=== PATIENT | female | born 1990 | race Caucasian/White ===

== ENCOUNTER 2016-08-24 12:46 | Observation (INO) | payer OTHER ==
[2016-08-24] MEDS ORDERED: PROMETHAZINE HCL 25 MG TABLET PO ONE (14:24)
[2016-08-24] MEDS ORDERED: OXYCODONE-ACETAMINOPHEN 5-325 MG TABLET PO ONE (14:24)
--- NOTE | 2016-08-24 14:26 | ER Document Report ---
ED Medical Screen (RME) - General Chief Complaint: Abdominal Pain Stated Complaint: ABDOMINAL PAIN Notes: Patient noted onset of pain in the right lower quadrant of her abdomen and around into the right back/flank region starting about 4 AM this morning. Around 11:00 today, she noted that she had a fever. Has not had any nausea or vomiting or diarrhea. No UTI symptoms, but has had UTIs in the past. Patient is the mother of a 9-month-old , not nursing. LMP 3/13 and irregular, on no control. Patient has a history of lupus and fibromyalgia. She is currently on Plaquenil , Imuran, Cymbalta, meloxicam, and tramadol. TRAVEL OUTSIDE OF THE [place] IN LAST 30 DAYS: No - Related Data Allergies/Adverse Reactions: pineapple Allergy (Mild, Verified 08/24/16 12:52) Past Medical History Neurological Medical History: Reports: Hx Seizures - "a few weeks ago". Denies : Hx Cerebrovascular Accident Renal/ Medical History: Denies: Hx Kidney Stones, Hx Peritoneal Dialysis Psychiatric Medical History: Reports: Hx Bipolar Disorder, Hx Depression Denies: Hx Post Traumatic Stress Disorder, Hx Schizophrenia Infectious Medical History: Denies: Hx HIV Past Surgical History: Reports: Hx Section Physical Exam - Vital signs Vitals: Temp Pulse Resp BP Pulse Ox 99.6 F 125 H 16 125/76 99 08/24/16 12:52 08/24/16 12:52 08/24/16 12:52 08/24/16 12:52 08/24/16 12:52 Course - Vital Signs Vital signs: Temp Pulse Resp BP Pulse Ox 99.6 F 125 H 16 125/76 99 08/24/16 12:52 08/24/16 12:52 08/24/16 12:52 08/24/16 12:52 08/24/16 12:52
[2016-08-24 14:56] LABS: HEMATOCRIT 35.7 % (36.0-47.0); HGB HCT DIFFERENCE 0.3; MEAN CORPUSCULAR HEMOGLOBIN 28.6 pg (27.0-33.4); MEAN CORPUSCULAR HGB CONC 33.6 g/dL (32.0-36.0); MEAN CORPUSCULAR VOLUME 85 fl (80-97); RED BLOOD COUNT 4.19 10^6/uL (3.72-5.28); RED CELL DISTRIBUTION WIDTH 17.2 % (11.5-14.0); WHITE BLOOD COUNT 17.8 10^3/uL (4.0-10.5)
[2016-08-24] MEDS ORDERED: NORMAL SALINE 500 ML IV ONE (15:11)
--- NOTE | 2016-08-24 15:11 | ER Document Report ---
ED GI/ - General Mode of Arrival: Ambulatory Information source: Patient TRAVEL OUTSIDE OF THE [place] IN LAST 30 DAYS: No - HPI Patient complains to provider of: Abdominal pain - RLQ pain that radiates to bilateral flanks, Flank pain - bilateral Onset: This morning - 0400 Location: RLQ, Left flank, Right flank Associated symptoms: Other - see notes above Exacerbated by: Movement <AMARIS DUNN - Last Filed: 08/24/16 19:17> <CASSY LAZARO - Last Filed: 08/24/16 22:39> - General Chief Complaint: Abdominal Pain Stated Complaint: ABDOMINAL PAIN Notes: 26 year old female with history of ovarian cysts, Lupus, and fibromyalgia presents to the ED complaining of sudden RLQ abdominal pain that radiates to the bilateral flanks which started this morning at 0400. Patient states that this pain feels different than her pain with ovarian cysts. Patient additionally complains of nausea after eating and a fever (101.2F; has taken Tylenol), and denies burning with urination, dysuria, or frequency. Patient states that her pain is exacerbated with movement. (AMARIS DUNN) - Related Data Allergies/Adverse Reactions: pineapple Allergy (Mild, Verified 08/24/16 12:52) Past Medical History - General Information source: Patient - Social History Smoking Status: Unknown if Ever Smoked Family History: Reviewed & Not Pertinent Patient has suicidal ideation: No Patient has homicidal ideation: No Neurological Medical History: Reports: Hx Seizures - "a few weeks ago". Denies : Hx Cerebrovascular Accident Renal/ Medical History: Reports: Hx Ovarian Cysts. Denies: Hx Kidney Stones, Hx Peritoneal Dialysis Musculoskeltal Medical History: Reports Hx Fibromyalgia Psychiatric Medical History: Reports: Hx Bipolar Disorder, Hx Depression Denies: Hx Post Traumatic Stress Disorder, Hx Schizophrenia Infectious Medical History: Denies: Hx HIV Past Surgical History: Reports: Hx Section - x2, Hx Tonsillectomy <AMARIS DUNN - Last Filed: 08/24/16 19:17> <CASSY LAZARO - Last Filed: 08/24/16 22:39> - Medical History Notes: History of Lupus (AMARIS DUNN) Review of Systems - Review of Systems Constitutional: See HPI, Fever - 101.2F EENT: No symptoms reported Cardiovascular: No symptoms reported Respiratory: No symptoms reported Gastrointestinal: See HPI, Abdominal pain - RLQ, Nausea - after eating Genitourinary: See HPI, Flank pain - bilateral. denies: Burning, Dysuria, Frequency Female Genitourinary: No symptoms reported Musculoskeletal: No symptoms reported Skin: No symptoms reported Hematologic/Lymphatic: No symptoms reported Neurological/Psychological: No symptoms reported -: Yes All other systems reviewed and negative <AMARIS DUNN - Last Filed: 08/24/16 19:17> Physical Exam - General General appearance: Alert In distress: None - HEENT Head: Normocephalic, Atraumatic Eyes: Normal Extraocular movements intact: Yes Pupils: PERRL - Respiratory Respiratory status: No respiratory distress Breath sounds: Normal - Cardiovascular Rhythm: Regular Heart sounds: Normal auscultation - Abdominal Inspection: Normal Distension: No distension Tenderness: Tender - RLQ tenderness to palpation - Back Back: CVA tenderness - right. No: Normal - Extremities General upper extremity: Normal inspection, Normal ROM General lower extremity: Normal inspection, Normal ROM - Neurological Neuro grossly intact: Yes Cognition: Normal Orientation: AAOx4 Oden Coma Scale Eye Opening: Spontaneous Harjit Coma Scale Verbal: Oriented Harjit Coma Scale Motor: Obeys Commands Oden Coma Scale Total: 15 Speech: Normal - Psychological Associated symptoms: Normal affect, Normal mood - Skin Skin Temperature: Warm Skin Moisture: Dry Skin Color: Normal <AMARIS DUNN - Last Filed: 08/24/16 19:17> <CASSY LAZARO - Last Filed: 08/24/16 22:39> - Vital signs Vitals: Temp Pulse Resp BP Pulse Ox 99.6 F 125 H 16 125/76 99 08/24/16 12:52 08/24/16 12:52 08/24/16 12:52 08/24/16 12:52 08/24/16 12:52 - Genitourinary Notes: Patient does not want to have pelvic exam at this time. Have explained concern for infection. Patient states that she does not have an STD and she does not tolerate pelvic exams as they can be painful for her. (CASSY LAZARO) Course - Laboratory Result Diagrams: 08/24/16 14:38 08/24/16 14:38 - Consults Dr. Steinberg Time consulted: 18:29 <AMARIS DUNN - Last Filed: 08/24/16 19:17> - Laboratory Result Diagrams: 08/24/16 14:38 08/24/16 14:38 <CASSY LAZARO - Last Filed: 08/24/16 22:39> - Re-evaluation Re-evalutation: 08/24/16 Patient is a 26-year-old female who comes in with right lower quadrant pain, nausea, and fever at home. Patient has continued to right lower quadrant pain in the emergency department. No acute findings on right upper quadrant ultrasound. Symptoms concerning for appendicitis. Surgery has been consulted to evaluate the patient. Patient has refused pelvic exam. Transvaginal ultrasound within normal limits. No acute findings on urine. Patient does have leukocytosis with a left shift. Patient discussed with Dr. Steinberg and will be admitted for observation. Patient agrees with this plan. (CASSY LAZARO) - Vital Signs Vital signs: Temp Pulse Resp BP Pulse Ox 98.5 F 69 18 114/72 100 08/24/16 19:56 08/24/16 19:56 08/24/16 18:40 08/24/16 19:56 08/24/16 19:56 - Laboratory Laboratory results interpreted by me: 08/24/16 08/24/16 14:38 14:38 WBC 17.8 H Hct 35.7 L RDW 17.2 H Seg Neuts % (Manual) 95 H Lymphocytes % (Manual) 4 L Monocytes % (Manual) 0 L Abs Neuts (Manual) 16.9 H Abs Monocytes (Manual) 0.0 L Albumin 5.1 H - Consults Dr. Steinberg Reason for consultation: 08/24/16 18:29 Patient was discussed with Dr. Steinberg and agrees to see the patient at bedside. 08/24/16 19:15 Dr. Steinberg called and requests that a CT-Pelvis with contrast be done. (AMARIS DUNN) Discharge <AMARIS DUNN - Last Filed: 08/24/16 19:17> - Discharge Admitting Provider: Surgicalist - [facility] Admitted: Surgical Floor <CASSY LAZARO - Last Filed: 08/24/16 22:39> - Discharge Clinical Impression: Abdominal pain Qualifiers: Abdominal location: right lower quadrant Qualified Code(s): R10.31 - Right lower quadrant pain Fever Qualifiers: Fever type: unspecified Qualified Code(s): R50.9 - Fever, unspecified Condition: Stable Disposition: ADMITTED OBSERVATION Scribe Attestation: 08/24/16 22:39 I personally performed the services described in the documentation, reviewed and edited the documentation which was dictated to the scribe in my presence, and it accurately records my words and actions. (CASSY LAZARO) Scribe Documentation - Scribe Written by Scribe:: Barry Rooney, 08/24/2016 1531 acting as scribe for :: Saira <AMARIS DUNN - Last Filed: 08/24/16 19:17>
[2016-08-24 15:16] LABS: ALANINE AMINOTRANSFERASE 43 U/L (9-52); ALBUMIN 5.1 g/dL (3.5-5.0); ALKALINE PHOSPHATASE 60 U/L (38-126); ANION GAP 13 (5-19); ASPARTATE AMINO TRANSFERASE 28 U/L (14-36); BILIRUBIN,DIRECT 0.2 mg/dL (0.0-0.4); BILIRUBIN,TOTAL 0.9 mg/dL (0.2-1.3); BLOOD UREA NITROGEN 8 mg/dL (7-20); CALCIUM 9.8 mg/dL (8.4-10.2); CARBON DIOXIDE 25 mmol/L (22-30); CHLORIDE 103 mmol/L (98-107); CREATININE RESULT 0.57 mg/dL (0.52-1.25); GLUCOSE 109 mg/dL (75-110); LIPASE 140.3 U/L (23-300); POTASSIUM 3.8 mmol/L (3.6-5.0); SODIUM 140.9 mmol/L (137-145); TOTAL PROTEIN 7.8 g/dL (6.3-8.2)
[2016-08-24 15:17] LABS: BASOPHILS % (MANUAL) 1 % (0-2); EOSINOPHILS % (MANUAL) 0 % (0-6); LYMPHOCYTES % (MANUAL) 4 % (13-45); TOTAL CELLS COUNTED 100
[2016-08-24 15:19] LABS: ANISOCYTOSIS 2+; OVALOCYTES 2+; POIKILOCYTOSIS 2+; POLYCHROMASIA SLIGHT; SCHISTOCYTES SLIGHT
[2016-08-24 15:20] LABS: HYPOCHROMASIA SLIGHT
[2016-08-24 15:21] LABS: APPEARANCE,URINE CLEAR; BILIRUBIN,URINE NEGATIVE (NEGATIVE); GLUCOSE, URINE NEGATIVE (NEGATIVE); KETONES,URINE NEGATIVE (NEGATIVE); LEUKOCYTE ESTERASE,URINE NEGATIVE (NEGATIVE); NITRITE,URINE NEGATIVE (NEGATIVE); PROTEIN,URINE NEGATIVE (NEGATIVE); URINE SPECIFIC GRAVITY 1.004; UROBILINOGEN,URINE NEGATIVE mg/dL (<2.0)
[2016-08-24] MEDS ORDERED: NORMAL SALINE 1000 ML 1,000 ML IV ONE (18:34)
[2016-08-24] MEDS ORDERED: ONDANSETRON HCL INJ/PF 4 MG/2 ML SDV IV ONE (18:35)
[2016-08-24] MEDS ORDERED: MORPHINE SULFATE 10 MG/ML INJ IV ONE (18:35)
--- NOTE | 2016-08-24 19:31 | PDOC H&P ---
History of Present Illness Patient complains of: Abdominal pain History of Present Illness: ARTURO ABDULLAHI is a 26 year old female who was in her usual state of health, so early this morning when she developed acute onset abdominal pain. She had a bowl of cereal. There is been no nausea or vomiting. Because of persisting right lower quadrant and right sided pain in the emergency department where she was found to have right-sided abdominal tenderness. She was complaining of pain and was given by mouth pain medication in the triage area. She was also tachycardic to 120. Patient had a right upper quadrant ultrasound was unremarkable. She then had a CT scan without oral contrast which showed some fluid in the pelvis otherwise nondiagnostic. Patient received intravenous morphine for more pain and surgery was consulted. She denies being sick, denies history of trauma, denies anorexia, denies constitutional symptoms. Past Medical History Neurological Medical History: Reports: Seizures - "a few weeks ago" Musculoskeltal Medical History: Reports: Fibromyalgia Psychiatric Medical History: Reports: Bipolar Disorder, Depression Denies: Post Traumatic Stress Disorder Hematology: Reports: Anemia - during Denies: Hemophilia, Sickle Cell Disease Infectious Medical History: Denies: HIV Past Surgical History Past Surgical History: Reports: Section - x2, Tonsillectomy Social History Smoking Status: Unknown if Ever Smoked Family History Family History: Reviewed & Not Pertinent Parental Family History Reviewed: Yes Children Family History Reviewed: Yes Sibling(s) Family History Reviewed.: Yes Medication/Allergy Home Medications: Hydroxychloroquine Sulfate [Plaquenil 200 mg Tablet] 200 mg PO BID 06/01/15 Vit #76/Iron,Carb/FA [Pnv 29-1 Tablet] 1 tab PO DAILY 10/29/15 Ibuprofen [Motrin 800 mg Tablet] 800 mg PO Q8HP PRN #60 tablet 11/18/15 Oxycodone HCl/Acetaminophen [Percocet 5-325 mg Tablet] 1 tab PO Q4HP PRN #30 tablet 11/18/15 Allergies/Adverse Reactions: pineapple Allergy (Mild, Verified 08/24/16 12:52) Review of Systems Constitutional: PRESENT: as per HPI Eyes: ABSENT: visual disturbances Ears: ABSENT: hearing changes Cardiovascular: ABSENT: chest pain, dyspnea on exertion, edema, orthropnea, palpitations Respiratory: ABSENT: cough, hemoptysis Gastrointestinal: PRESENT: as per HPI, other - Patient denies change in bowel habits. Genitourinary: ABSENT: dysuria, hematuria Musculoskeletal: ABSENT: joint swelling Integumentary: ABSENT: rash, wounds Physical Exam Vital Signs: Temp Pulse Resp BP Pulse Ox 98.1 F 88 18 114/63 99 08/24/16 18:40 08/24/16 18:40 08/24/16 18:40 08/24/16 18:40 08/24/16 18:40 Intake & Output 08/23/16 08/24/16 08/25/16 06:59 06:59 06:59 Weight 46.1 kg General appearance: PRESENT: no acute distress Head exam: PRESENT: normocephalic Eye exam: PRESENT: EOMI Ear exam: PRESENT: normal external ear exam Mouth exam: PRESENT: dry mucosa Neck exam: PRESENT: full ROM Respiratory exam: PRESENT: clear to auscultation luci Cardiovascular exam: PRESENT: RRR Pulses: PRESENT: +1 pedal pulses bilateral, +2 pedal pulses bilateral Vascular exam: PRESENT: normal capillary refill GI/Abdominal exam: PRESENT: other - Soft, essentially no tenderness, no rigidity no peritoneal signs no mass. Gentrourinary exam: PRESENT: other - Deferred Extremities exam: PRESENT: full ROM Musculoskeletal exam: PRESENT: other - No focal deformities Neurological exam: PRESENT: other - No focal deformities Skin exam: PRESENT: dry Results Laboratory Results: 08/24/16 14:38 08/24/16 14:38 08/24/16 08/24/16 08/24/16 14:38 14:38 14:38 WBC 17.8 H RBC 4.19 Hgb 12.0 Hct 35.7 L MCV 85 MCH 28.6 MCHC 33.6 RDW 17.2 H Plt Count 247 Seg Neutrophils % Not Reportable Lymphocytes % Not Reportable Monocytes % Not Reportable Eosinophils % Not Reportable Basophils % Not Reportable Absolute Neutrophils Not Reportable Absolute Lymphocytes Not Reportable Absolute Monocytes Not Reportable Absolute Eosinophils Not Reportable Absolute Basophils Not Reportable Sodium 140.9 Potassium 3.8 Chloride 103 Carbon Dioxide 25 Anion Gap 13 BUN 8 Creatinine 0.57 Est GFR ( Amer) > 60 Est GFR (Non-Af Amer) > 60 Glucose 109 Calcium 9.8 Total Bilirubin 0.9 AST 28 ALT 43 Alkaline Phosphatase 60 Total Protein 7.8 Albumin 5.1 H Lipase 140.3 Serum HCG, Qual NEGATIVE Urine Color Urine Appearance Urine pH Ur Specific [place] Urine Protein Urine Glucose (UA) Urine Ketones Urine Blood Urine Nitrite Ur Leukocyte Esterase Urine WBC (Auto) Urine RBC (Auto) 08/24/16 14:38 WBC RBC Hgb Hct MCV MCH MCHC RDW Plt Count Seg Neutrophils % Lymphocytes % Monocytes % Eosinophils % Basophils % Absolute Neutrophils Absolute Lymphocytes Absolute Monocytes Absolute Eosinophils Absolute Basophils Sodium Potassium Chloride Carbon Dioxide Anion Gap BUN Creatinine Est GFR ( Amer) Est GFR (Non-Af Amer) Glucose Calcium Total Bilirubin AST ALT Alkaline Phosphatase Total Protein Albumin Lipase Serum HCG, Qual Urine Color STRAW Urine Appearance CLEAR Urine pH 7.0 Ur Specific [place] 1.004 Urine Protein NEGATIVE Urine Glucose (UA) NEGATIVE Urine Ketones NEGATIVE Urine Blood NEGATIVE Urine Nitrite NEGATIVE Ur Leukocyte Esterase NEGATIVE Urine WBC (Auto) 1 Urine RBC (Auto) 0 Impressions: Abdomen Ultrasound 08/24/16 15:47 IMPRESSION: NORMAL RIGHT UPPER QUADRANT ULTRASOUND. Abdomen/Pelvis CT 08/24/16 17:16 IMPRESSION: APPENDIX NOT CONFIDENTLY IDENTIFIED HOWEVER NO DISCRETE INFLAMMATORY CHANGES SEEN WITHIN THE RIGHT LOWER QUADRANT. THERE IS A SMALL AMOUNT OF FREE FLUID IN THE RIGHT HEMIPELVIS IN THE SETTING OF DOMINANT RIGHT OVARIAN FOLLICLE PRESUMABLY PHYSIOLOGIC BUT COULD ACCOUNT FOR RIGHT LOWER QUADRANT/ PELVIC PAIN. CORRELATE WITH PHYSICAL EXAM. MILD TO MODERATE HEPATIC STEATOSIS. CORRELATE WITH LIVER ENZYMES. Status: Image reviewed by me - CT scan extremely limited due to low body fat, and absence of oral contrast. There is some stool in the colon Assessment & Plan - Diagnosis (1) Abdominal pain Qualifiers: Abdominal location: right lower quadrant Qualified Code(s): R10.31 - Right lower quadrant pain Is this a current diagnosis for this admission?: YesPlan: 1. Currently the patient does not last the classic performance of acute appendicitis; addition she received oral and IV pain medication and she is on chronic immunosuppression. Her abdominal Examination at this moment is almost benign. 2. I would suggest holding all pain medicine, repeating her CT scan with oral contrast to better delineate her pelvic anatomy. She is also receiving a transvaginal ultrasound. 3. We will admit the patient to the surgical service for observation, keep her nothing by mouth, and consult hospitalist to assist with pharmacologic management. (2) SLE (systemic lupus erythematosus) Is this a current diagnosis for this admission?: YesPlan: Medical management per consulting service (4) Fibromyalgia Is this a current diagnosis for this admission?: YesPlan: We will manage her after consulting medical service (7) Immunosuppression Is this a current diagnosis for this admission?: YesPlan: We'll consult internal medicine to assist with medical management - Time Time Spent: 50 to 70 Minutes Critical Time spent with patient: 15-24 minutes Medications reviewed and adjusted accordingly: Yes Anticipated discharge: Home - Inpatient Certification Medical Necessity: Need For IV Fluids
[2016-08-24] MEDS: RINGERS SOLUTION,LACTATED 1,000 ML IV PRN (23:16)
[2016-08-24 23:41] LABS: ADD ON TESTING BLD IN LAB ACKNOWLEDGE
[2016-08-24] MEDS ORDERED: NICOTINE 7 MG/24 HR PATCH.TD24 TD PRN (23:51)
--- NOTE | 2016-08-24 23:56 | PDOC CONSULTATION ---
Consultation Consult Date: 08/24/16 Attending physician:: GARIMA HU Consult reason:: management of medical problems History of Present Illness Admission Date/PCP: 08/24/16 21:40 PCP None [facility] [place] Patient complains of: RLQ pain History of Present Illness: ARTURO ABDULLAHI is a 26 year old female who was in her usual state of health, until early this morning when she developed acute onset abdominal pain. She had a bowl of cereal. There has been no nausea or vomiting. Because of persistent right lower quadrant and right sided abdominal pain, she presented to the emergency department where she was found to have right-sided abdominal tenderness. She was complaining of pain and was given by mouth pain medication in the triage area. She was also tachycardic to 120. Patient had a right upper quadrant ultrasound was unremarkable. She then had a CT scan without oral contrast which showed some fluid in the pelvis otherwise nondiagnostic. Patient received intravenous morphine for more pain and surgery was consulted. She denies being sick, denies history of trauma, denies anorexia, denies constitutional symptoms. Patient has been discussed with consulting surgeon who evaluated the patient. History and physical, along with emergency room physician notes have been reviewed. She is currently resting quietly, still having mild right lower quadrant abdominal pain.. Laboratory results are listed in [facility] and are reviewed. X-ray summary results are listed below, with full report(s) reviewed. . Social history/personal habits: . 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 Occasional alcohol. No illicit drug use. Allergies/adverse reactions are listed in [facility] and are reviewed. NKDA. Home medications Home medications initially autopopulated into [facility] may not accurately reflect patient's true medications, dosages, and/or frequencies. genetic technologist to reconcile medications. Unfortunately, patient uncertain of all her medications/dosages/frequencies. REVIEW OF SYSTEMS: Constitutional: See history and present illness. Eyes: Wears glasses. ENT: No swallowing problems or complaints. No hearing problems or complaints. Pulmonary: No current complaints. Cardiovascular: No current complaints, including chest pain. Gastrointestinal: See history and present illness. Skin: No current complaints, including rashes. Hematologic: Easy bruising. Neurologic: No current complaints, including numbness or tingling. Musculoskeletal: Pain from fibromyalgia. Psychiatric: Mild Anxiety depression; denies suicidal or homicidal ideation. Endocrine: No current complaints, including polyuria. Genitourinary: No current complaints, including dysuria. PHYSICAL EXAMINATION: 5 feet tall. 46.1 kg. BMI 19.8 kg/m.Temperature 98.5. Pulse 69 and regular. Blood pressure 114/72. 100% saturation on room air. Respirations are 14 and unlabored. Female emergency room nurse Nathen is present. , along with male dial lathe operator, are present. Patient approves. Thin, otherwise well-developed young female appearing approximately her stated age. Initially asleep, awakens easily. Pleasant alert and cooperative. No obvious distress other than perhaps mildly anxious. Skin is warm and dry. No grossly obvious evidence of rash in areas of skin examined. No subcutaneous nodules palpated. Tattoos. ENT: Hearing grossly normal to normal conversation. Tongue midline on protrusion pink and slightly tacky. Eyes: No scleral icterus. Pupils equal and reactive to light at 4 mm. Bowdens conjunctivae. Neck is supple and nontender to gentle active range of motion and palpation. Midline trachea. No palpable thyroid nodule mass enlargement or tenderness. Lymphatic: No palpable cervical or clavicular nodes. Neck and lymphatic exams limited by patient body habitus. Psychiatric: Reasonable insight into acute and chronic medical issues. Oriented to time location and why here. Lungs: Auscultation reveals clear and equal breath sounds bilaterally. No use of accessory respiratory muscles. Cardiovascular: Heart regular rate and rhythm, without gallop murmur or rub. No carotid or abdominal aortic bruits. No ankle or pedal edema. palpable dorsalis pedis pulses. Abdomen: soft, , nontender in left lower quadrant with positive bowel sounds. Further examination of abdomen deferred due to her underlying issue.. Extremities: Feet are warm and dry. No calf tenderness to compression. No grossly obvious visual evidence of calf swelling. Gentle manipulation of lower extremities fails to reveal any obvious evidence of injury or instability to knees hips or ankles. Neurologic: Moves upper extremities grossly normally. Patellar reflexes absent. Absent Babinski. Light touch is intact at feet. Dorsiflexion and plantarflexion of feet 5 / 5 and symmetric. Past Medical History Cardiac Medical History: Denies: Congestive Heart Failure, DVT, Myocardial Infarction, Hyperlipidema, Hypertension, Pulmonary Embolism Pulmonary Medical History: Denies: Asthma, Chronic Obstructive Pulmonary Disease (COPD) Neurological Medical History: Reports: Seizures - Last episode one year ago. Negative workup. Not on antiepileptic. Denies: Hemorrhagic CVA, Ischemic CVA Endocrine Medical History: Denies: Diabetes Mellitus Type 1, Diabetes Mellitus Type 2, Hyperthyroidism, Hypothyroidism Renal/ Medical History: Reports: None GI Medical History: Denies: Cirrhosis, Gastroesophageal Reflux Disease, Hepatitis, Peptic Ulcer Disease Musculoskeltal Medical History: Reports: Fibromyalgia, Other - Systemic lupus Psychiatric Medical History: Reports: Bipolar Disorder, Depression, General Anxiety Disorder Denies: Post Traumatic Stress Disorder Hematology: Reports: Anemia - during , Other - Easy bruising Denies: Hemophilia, Sickle Cell Disease Infectious Medical History: Denies: Hepatitis B, Hepatitis C, HIV Past Surgical History Past Surgical History: Reports: Section - x2, Tonsillectomy Social History Information Source: Patient, [facility] Records - Consulting surgeon also Lives with: Spouse/Significant other Smoking Status: Current Some Day Smoker Frequency of Alcohol Use: Occasional Drugs: None - Advance Directive Resuscitation Status: Full Code Surrogate healthcare decision maker:: Family History Family History: Reviewed & Not Pertinent Parental Family History Reviewed: Yes Children Family History Reviewed: Yes Sibling(s) Family History Reviewed.: Yes Medication/Allergy Home Medications: RX: Hydroxychloroquine Sulfate [Plaquenil 200 mg Tablet] 200 mg PO QPM 06/01/15 Duloxetine HCl [Cymbalta 20 Mg Capsule.Dr] 40 mg PO BID 08/25/16 RX: Meloxicam 7.5 mg PO DAILY 08/25/16 RX: Tramadol HCl 50 mg PO Q8 PRN 08/25/16 Allergies/Adverse Reactions: pineapple Allergy (Mild, Verified 08/24/16 12:52) Physical Exam Vital Signs: Temp Pulse Resp BP Pulse Ox 98.5 F 69 18 114/72 100 08/24/16 19:56 08/24/16 19:56 08/24/16 18:40 08/24/16 19:56 08/24/16 19:56 Results Impressions: Abdomen Ultrasound 08/24/16 15:47 IMPRESSION: NORMAL RIGHT UPPER QUADRANT ULTRASOUND. Abdomen/Pelvis CT 08/24/16 17:16 IMPRESSION: APPENDIX NOT CONFIDENTLY IDENTIFIED HOWEVER NO DISCRETE INFLAMMATORY CHANGES SEEN WITHIN THE RIGHT LOWER QUADRANT. THERE IS A SMALL AMOUNT OF FREE FLUID IN THE RIGHT HEMIPELVIS IN THE SETTING OF DOMINANT RIGHT OVARIAN FOLLICLE PRESUMABLY PHYSIOLOGIC BUT COULD ACCOUNT FOR RIGHT LOWER QUADRANT/ PELVIC PAIN. CORRELATE WITH PHYSICAL EXAM. MILD TO MODERATE HEPATIC STEATOSIS. CORRELATE WITH LIVER ENZYMES. Transvaginal US 08/24/16 19:11 IMPRESSION: NORMAL TRANSVAGINAL PELVIC ULTRASOUND. Pelvis CT 08/24/16 19:27 IMPRESSION: NO ACUTE OR SIGNIFICANT FINDINGS. NORMAL APPENDIX VISUALIZED. Assessment & Plan - Diagnosis (1) RLQ abdominal pain Is this a current diagnosis for this admission?: YesPlan: Surgical management. (2) Bipolar disorder Qualifiers: Active/Remission status: remission status unspecified Qualified Code (s): F31.9 - Bipolar disorder, unspecified Is this a current diagnosis for this admission?: YesPlan: Resume home medications as appropriate once these have been determined and reviewed. (3) Anxiety Is this a current diagnosis for this admission?: YesPlan: Resume home medications as appropriate once these have been determined and reviewed. (4) Depression Qualifiers: Depression Type: unspecified Qualified Code(s): F32.9 - Major depressive disorder, single episode, unspecified Is this a current diagnosis for this admission?: YesPlan: Resume home medications as appropriate once these have been determined and reviewed. (5) Fibromyalgia Is this a current diagnosis for this admission?: YesPlan: Resume home medications as appropriate once these have been determined and reviewed. (6) Immunosuppression Is this a current diagnosis for this admission?: YesPlan: Medications probably should be withheld till etiology of right lower quadrant pain has been definitively determined and/or treated. Will discuss with daytime hospitalist team. (7) SLE (systemic lupus erythematosus) Qualifiers: Systemic lupus erythematosus organ involvement: unspecified Is this a current diagnosis for this admission?: YesPlan: Resume home medications as appropriate once these have been determined and reviewed. (8) Seizure disorder Is this a current diagnosis for this admission?: YesPlan: Seizure precautions. Not currently on antiepileptic. (9) Tobacco dependency Is this a current diagnosis for this admission?: YesPlan: When necessary nicotine patch. (10) DVT prophylaxis Is this a current diagnosis for this admission?: YesPlan: Surgical management. Thank you for asking us to see this unfortunate patient. We'll follow closely and manage her medical problems.
[2016-08-25 00:01] LABS: MAGNESIUM 1.9 mg/dL (1.6-2.3)
[2016-08-25] MEDS: RINGERS SOLUTION,LACTATED 1,000 ML IV PRN (05:34)
[2016-08-25 07:50] LABS: ABSOLUTE EOSINOPHILS # (AUTO) 0.2 10^3/uL (0.0-0.6); ABSOLUTE LYMPHOCYTES (AUTO) 0.9 10^3/uL (0.5-4.7); ABSOLUTE MONOCYTES (AUTO) 0.3 10^3/uL (0.1-1.4); ABSOLUTE NEUT (AUTO) 6.1 10^3/uL (1.7-8.2); BASOPHILS % (AUTO) 0.3 % (0-2); EOSINOPHILS % (AUTO) 2.2 % (0-6); HEMOGLOBIN 10.3 g/dL (12.0-15.5); HGB HCT DIFFERENCE -0.1; LYMPHOCYTES % (AUTO) 12.7 % (13-45); MEAN CORPUSCULAR HEMOGLOBIN 28.3 pg (27.0-33.4); MEAN CORPUSCULAR HGB CONC 33.2 g/dL (32.0-36.0); MEAN CORPUSCULAR VOLUME 85 fl (80-97); MONOCYTES % (AUTO) 3.7 % (3-13); RED BLOOD COUNT 3.64 10^6/uL (3.72-5.28); RED CELL DISTRIBUTION WIDTH 17.5 % (11.5-14.0); SEGMENTED NEUTROPHILS % (AUTO) 81.1 % (42-78); WHITE BLOOD COUNT 7.5 10^3/uL (4.0-10.5)
--- NOTE | 2016-08-25 08:55 | PDOC PROGRESS REPORT ---
Subjective Progress Note for:: 08/25/16 Subjective:: generalized pain Physical Exam Vital Signs: Temp Pulse Resp BP Pulse Ox 98.9 F 71 16 106/54 L 100 08/25/16 08:17 08/25/16 08:17 08/25/16 08:17 08/25/16 08:17 08/25/16 08:17 Intake & Output 08/24/16 08/25/16 08/26/16 06:59 06:59 06:59 Intake Total 1000 Balance 1000 Weight 44.1 kg GI/Abdominal exam: PRESENT: other - Abdomen soft non tender Results Laboratory Results: 08/25/16 07:18 08/25/16 07:18 WBC 7.5 RBC 3.64 L Hgb 10.3 L Hct 31.0 L MCV 85 MCH 28.3 MCHC 33.2 RDW 17.5 H Plt Count 199 Seg Neutrophils % 81.1 H Lymphocytes % 12.7 L Monocytes % 3.7 Eosinophils % 2.2 Basophils % 0.3 Absolute Neutrophils 6.1 Absolute Lymphocytes 0.9 Absolute Monocytes 0.3 Absolute Eosinophils 0.2 Absolute Basophils 0.0 Impressions: Abdomen Ultrasound 08/24/16 15:47 IMPRESSION: NORMAL RIGHT UPPER QUADRANT ULTRASOUND. Abdomen/Pelvis CT 08/24/16 17:16 IMPRESSION: APPENDIX NOT CONFIDENTLY IDENTIFIED HOWEVER NO DISCRETE INFLAMMATORY CHANGES SEEN WITHIN THE RIGHT LOWER QUADRANT. THERE IS A SMALL AMOUNT OF FREE FLUID IN THE RIGHT HEMIPELVIS IN THE SETTING OF DOMINANT RIGHT OVARIAN FOLLICLE PRESUMABLY PHYSIOLOGIC BUT COULD ACCOUNT FOR RIGHT LOWER QUADRANT/ PELVIC PAIN. CORRELATE WITH PHYSICAL EXAM. MILD TO MODERATE HEPATIC STEATOSIS. CORRELATE WITH LIVER ENZYMES. Transvaginal US 08/24/16 19:11 IMPRESSION: NORMAL TRANSVAGINAL PELVIC ULTRASOUND. Pelvis CT 08/24/16 19:27 IMPRESSION: NO ACUTE OR SIGNIFICANT FINDINGS. NORMAL APPENDIX VISUALIZED. Assessment & Plan - Plan Summary Plan Summary: No surgical problems Medical management follow up PRN
[2016-08-25] MEDS ORDERED: TRAMADOL HCL 50 MG TABLET PO PRN (09:10)
[2016-08-25] MEDS ORDERED: MELOXICAM 7.5 MG TABLET PO SCH (10:00)
[2016-08-25] MEDS ORDERED: DULOXETINE HCL 20 MG CAPSULE.DR PO SCH (10:00)
--- NOTE | 2016-08-25 10:28 | DISCHARGE SUMMARY E ---
Discharge Summary NAME: ARTURO ABDULLAHI : 1990 AGE: 26Y ADMITTED: 08/24/2016 DISCHARGED: 08/25/2016 ADMITTING DIAGNOSES: 1. Abdominal pain. 2. History of fibromyalgia. 3. History of lupus erythematosus. 4. Leukocytosis. DISCHARGE DIAGNOSES: Resolved leukocytosis and abdominal pain, chronic. Most likely due to lupus related but no surgical pathology found. HOSPITAL COURSE: After admission, we evaluated for abdominal pain. She had a CT scan of abdomen and pelvis which did not reveal any acute pathology or appendicitis. No cholecystitis. She had ultrasound of the gallbladder which was negative. All of the studies were negative and the pain is mostly generalized. On examination, she appears to be comfortable. No jaundice. No fever. Abdominal exam is soft, nontender. No specific tenderness. No distension. Normal bowel sounds. Her white count came down to 7 from 17, most likely it was dehydration related. After hydration, it came down. Today she is feeling better, tolerating diet. Surgically she found to have most likely chronic pain due to exacerbation of the chronic pain from fibromyalgia. Advised to take the home medications and also to follow with the pain service as an outpatient. DICTATING PHYSICIAN: KAZ QUISPE M.D. [id number] PHY#: [id number] ID: [id number] JOB#: [id number] ACCT: [id number] cc:GARIMA HU M.D., SANKAR M.D. > MTDD
[2016-08-25 11:09] VITALS: BP 114/63
--- NOTE | 2016-08-25 16:32 | PDOC PROGRESS REPORT ---
Subjective Progress Note for:: 08/25/16 Subjective:: Patient seen on morning rounds. She is resting in bed. She states she, " doesn' t feel well..is generally achy.." Denies any abdominal pain at the present time. She denies nausea, diarrhea or constipation. Last menstrual period was 2 weeks ago. Physical Exam Vital Signs: Temp Pulse Resp BP Pulse Ox 98.9 F 71 16 114/63 100 08/25/16 11:04 08/25/16 11:04 08/25/16 11:04 08/25/16 11:04 08/25/16 11:04 Intake & Output 08/24/16 08/25/16 08/26/16 06:59 06:59 06:59 Intake Total 1000 Balance 1000 Weight 44.1 kg General appearance: PRESENT: no acute distress, thin, well-developed Head exam: PRESENT: atraumatic, normocephalic Eye exam: PRESENT: conjunctiva pink, EOMI, PERRLA. ABSENT: scleral icterus Ear exam: PRESENT: normal external ear exam Mouth exam: PRESENT: moist, tongue midline Neck exam: ABSENT: carotid bruit, JVD, lymphadenopathy, thyromegaly Respiratory exam: PRESENT: clear to auscultation luci. ABSENT: rales, rhonchi, wheezes Cardiovascular exam: PRESENT: RRR. ABSENT: diastolic murmur, rubs, systolic murmur Pulses: PRESENT: normal dorsalis pedis pul Vascular exam: PRESENT: normal capillary refill GI/Abdominal exam: PRESENT: normal bowel sounds, soft. ABSENT: distended, guarding, mass, organolmegaly, rebound, tenderness Rectal exam: PRESENT: deferred Extremities exam: PRESENT: full ROM. ABSENT: calf tenderness, clubbing, pedal edema Neurological exam: PRESENT: alert, awake, oriented to person, oriented to place , oriented to time, oriented to situation, CN II-XII grossly intact. ABSENT: motor sensory deficit Psychiatric exam: PRESENT: appropriate affect, normal mood. ABSENT: homicidal ideation, suicidal ideation Skin exam: PRESENT: dry, intact, warm. ABSENT: cyanosis, rash Results Laboratory Results: 08/25/16 07:18 08/25/16 07:18 WBC 7.5 RBC 3.64 L Hgb 10.3 L Hct 31.0 L MCV 85 MCH 28.3 MCHC 33.2 RDW 17.5 H Plt Count 199 Seg Neutrophils % 81.1 H Lymphocytes % 12.7 L Monocytes % 3.7 Eosinophils % 2.2 Basophils % 0.3 Absolute Neutrophils 6.1 Absolute Lymphocytes 0.9 Absolute Monocytes 0.3 Absolute Eosinophils 0.2 Absolute Basophils 0.0 Impressions: Abdomen Ultrasound 08/24/16 15:47 IMPRESSION: NORMAL RIGHT UPPER QUADRANT ULTRASOUND. Abdomen/Pelvis CT 08/24/16 17:16 IMPRESSION: APPENDIX NOT CONFIDENTLY IDENTIFIED HOWEVER NO DISCRETE INFLAMMATORY CHANGES SEEN WITHIN THE RIGHT LOWER QUADRANT. THERE IS A SMALL AMOUNT OF FREE FLUID IN THE RIGHT HEMIPELVIS IN THE SETTING OF DOMINANT RIGHT OVARIAN FOLLICLE PRESUMABLY PHYSIOLOGIC BUT COULD ACCOUNT FOR RIGHT LOWER QUADRANT/ PELVIC PAIN. CORRELATE WITH PHYSICAL EXAM. MILD TO MODERATE HEPATIC STEATOSIS. CORRELATE WITH LIVER ENZYMES. Transvaginal US 08/24/16 19:11 IMPRESSION: NORMAL TRANSVAGINAL PELVIC ULTRASOUND. Pelvis CT 08/24/16 19:27 IMPRESSION: NO ACUTE OR SIGNIFICANT FINDINGS. NORMAL APPENDIX VISUALIZED. Assessment & Plan - Diagnosis (1) Abdominal pain Qualifiers: Abdominal location: right lower quadrant Qualified Code(s): R10.31 - Right lower quadrant pain Is this a current diagnosis for this admission?: YesPlan: CT of the abdomen and pelvis are all unremarkable. Transvaginal ultrasound shows slight enlargement a left ovary small amount of free fluid. Pain now is pretty much resolved (2) Bipolar disorder Qualifiers: Active/Remission status: remission status unspecified Qualified Code (s): F31.9 - Bipolar disorder, unspecified Is this a current diagnosis for this admission?: YesPlan: Continue current medications (3) SLE (systemic lupus erythematosus) Qualifiers: Systemic lupus erythematosus type: unspecified Is this a current diagnosis for this admission?: YesPlan: Continue Plaquenil and Imuran (4) Fibromyalgia Is this a current diagnosis for this admission?: YesPlan: Continue home medications - Time Time Spent with patient: 25-34 minutes Critical Time spent with patient: 15-24 minutes Anticipated discharge: Home
[2016-08-25] MEDS ORDERED: HYDROXYCHLOROQUINE SULFATE 200 MG TABLET PO SCH (18:00)
== END 2016-08-25 11:35 | disposition home or self-care (01) ==
LOC: ER 12:46 → EH 19:17 → UNDOADMOB 21:40 → 2N 23:42 → EH 23:42
PROVIDERS: ADMIT Surgery; ATTEND Surgery
PROC: 3E033GC Introduction of Other Therapeutic Substance into Peripheral Vein, Percutaneous Approach (ICD-10-PCS; principal; 2016-08-24)
PROC: 3E033GC Introduction of Other Therapeutic Substance into Peripheral Vein, Percutaneous Approach (ICD-10-PCS; 2016-08-24)
PROC: 3E033GC Introduction of Other Therapeutic Substance into Peripheral Vein, Percutaneous Approach (ICD-10-PCS; 2016-08-24)
PROC: 3E0337Z Introduction of Electrolytic and Water Balance Substance into Peripheral Vein, Percutaneous Approach (ICD-10-PCS; 2016-08-24)
DX: R10.31 Right lower quadrant pain (principal); M79.7 Fibromyalgia; F31.9 Bipolar disorder, unspecified; F41.9 Anxiety disorder, unspecified; D72.829 Elevated white blood cell count, unspecified; M32.9 Systemic lupus erythematosus, unspecified; F17.200 Nicotine dependence, unspecified, uncomplicated; G40.909 Epilepsy, unspecified, not intractable, without status epilepticus
CPT/HCPCS: 99285; 96361; 96374; 96375; 36415 ×2; 83690; 83735; 84703; 85025 ×2; 80053; 81001; 76705; 76830; 93976; 72193; 74177; G0378 ×2; J2270; J3490; J2405; J7030; J7040; J7120 ×2

== ENCOUNTER 2016-12-24 18:02 | Emergency (ER) | payer OTHER ==
[2016-12-24 19:06] LABS: ABSOLUTE BASOPHILS # (AUTO) 0.1 10^3/uL (0.0-0.2); ABSOLUTE EOSINOPHILS # (AUTO) 0.1 10^3/uL (0.0-0.6); ABSOLUTE LYMPHOCYTES (AUTO) 1.3 10^3/uL (0.5-4.7); ABSOLUTE MONOCYTES (AUTO) 0.6 10^3/uL (0.1-1.4); ABSOLUTE NEUT (AUTO) 7.3 10^3/uL (1.7-8.2); BASOPHILS % (AUTO) 0.7 % (0-2); HEMATOCRIT 27.5 % (36.0-47.0); HEMOGLOBIN 9.6 g/dL (12.0-15.5); HGB HCT DIFFERENCE 1.3; LYMPHOCYTES % (AUTO) 13.4 % (13-45); MEAN CORPUSCULAR VOLUME 89 fl (80-97); MONOCYTES % (AUTO) 6.9 % (3-13); RED BLOOD COUNT 3.11 10^6/uL (3.72-5.28); RED CELL DISTRIBUTION WIDTH 15.8 % (11.5-14.0); WHITE BLOOD COUNT 9.4 10^3/uL (4.0-10.5)
[2016-12-24 19:13] LABS: APPEARANCE,URINE CLEAR; BILIRUBIN,URINE NEGATIVE (NEGATIVE); GLUCOSE, URINE NEGATIVE (NEGATIVE); KETONES,URINE NEGATIVE (NEGATIVE); LEUKOCYTE ESTERASE,URINE NEGATIVE (NEGATIVE); NITRITE,URINE NEGATIVE (NEGATIVE); PROTEIN,URINE NEGATIVE (NEGATIVE); URINE SPECIFIC GRAVITY 1.006; UROBILINOGEN,URINE NEGATIVE mg/dL (<2.0)
[2016-12-24 19:19] LABS: ALANINE AMINOTRANSFERASE 28 U/L (9-52); ALBUMIN 4.4 g/dL (3.5-5.0); ALKALINE PHOSPHATASE 46 U/L (38-126); ANION GAP 10 (5-19); ASPARTATE AMINO TRANSFERASE 22 U/L (14-36); BILIRUBIN,DIRECT 0.4 mg/dL (0.0-0.4); BILIRUBIN,TOTAL 0.4 mg/dL (0.2-1.3); BLOOD UREA NITROGEN 10 mg/dL (7-20); CARBON DIOXIDE 23 mmol/L (22-30); CHLORIDE 104 mmol/L (98-107); CREATININE RESULT 0.55 mg/dL (0.52-1.25); GLUCOSE 80 mg/dL (75-110); POTASSIUM 3.7 mmol/L (3.6-5.0); SODIUM 137.1 mmol/L (137-145); TOTAL PROTEIN 7.1 g/dL (6.3-8.2)
--- NOTE | 2016-12-24 20:25 | RADIOLOGY REPORT (SQ) ---
EXAM DESCRIPTION: U/S [id number] TRNABD 1GES W/ODOP COMPLETED DATE/TIME: 12/24/2016 7:55 pm REASON FOR STUDY: + preg , pelvic pain COMPARISON: None. TECHNIQUE: Transabdominal static and realtime grayscale images acquired of the pelvis. Additional se lected spectral and color Doppler images recorded. All images stored on PACs. bHCG: Not available LIMITATIONS: None. FINDINGS: FETUS: Living intrauterine . EGA: 11 weeks BLAS: 07/15/2017 FHR: 173 beats per minute. SUBCHORIONIC BLEED: No SIZE OF BLEED: Not applicable. UTERUS: No masses. No anomalies. CERVICAL LENGTH: 3.7 sign Closed. RIGHT ADNEXA: Normal ovary with normal vascular flow. No adnexal free fluid. No adnexal masses. LEFT ADNEXA: Normal ovary with normal vascular flow. No adnexal free fluid. No adnexal masses. FREE FLUID: None. OTHER: No other significant finding. IMPRESSION: LIVING INTRAUTERINE . EGA 11 weeks Trimester of : First - 0 to 13 weeks. TECHNICAL DOCUMENTATION: JOB ID: [id number]- All Rights Reserved
--- NOTE | 2016-12-24 20:49 | ER Document Report ---
ED General - General Chief Complaint: Abdominal Pain Stated Complaint: ABDOMINAL PAIN,LEFT SIDE PAIN Time Seen by Provider: 12/24/16 18:37 Mode of Arrival: Ambulatory Information source: Patient Notes: 26 yr old female presents with complains of left sided pain. Pt notes she is , unsure how far along. AB+, hx of lupus denies any vaginal bleeding or discharge TRAVEL OUTSIDE OF THE [place] IN LAST 30 DAYS: No - HPI Onset: Just prior to arrival Onset/Duration: Sudden Quality of pain: Sharp Severity: Mild Pain Level: 1 Associated symptoms: None Exacerbated by: Denies Relieved by: Denies Similar symptoms previously: No Recently seen / treated by doctor: No - Related Data Allergies/Adverse Reactions: pineapple Allergy (Mild, Verified 12/24/16 18:35) Past Medical History - Social History Smoking Status: Never Smoker Cigarette use (# per day): No Chew tobacco use (# tins/day): No Smoking Education Provided: No Family History: Reviewed & Not Pertinent - Past Medical History Cardiac Medical History: Denies: Hx Congestive Heart Failure, Hx DVT, Hx Heart Attack, Hx Hypercholesterolemia, Hx Hypertension, Hx Pulmonary Embolism Pulmonary Medical History: Denies: Hx Asthma, Hx COPD Neurological Medical History: Reports: Hx Seizures - Last episode one year ago. Negative workup. Not on antiepileptic.. Denies: Hx Cerebrovascular Accident Endocrine Medical History: Denies: Hx Diabetes Mellitus Type 1, Hx Diabetes Mellitus Type 2, Hx Hyperthyroidism, Hx Hypothyroidism Renal/ Medical History: Reports: Hx Ovarian Cysts. Denies: Hx Kidney Stones, Hx Peritoneal Dialysis GI Medical History: Denies: Hx Cirrhosis, Hx Gastroesophageal Reflux Disease, Hx Hepatitis Musculoskeltal Medical History: Reports Hx Fibromyalgia Psychiatric Medical History: Reports: Hx Bipolar Disorder, Hx Depression Denies: Hx Post Traumatic Stress Disorder, Hx Schizophrenia Infectious Medical History: Denies: Hx Hepatitis, Hx HIV Past Surgical History: Reports: Hx Section - x2, Hx Tonsillectomy Review of Systems - Review of Systems Notes: REVIEW OF SYSTEMS: CONSTITUTIONAL : Denies fever, chills, or sweats. Denies recent illness. EENT: Denies eye, ear, throat, or mouth pain or symptoms. Denies nasal or sinus congestion or discharge. Denies throat, tongue, or mouth swelling or difficulty swallowing. CARDIOVASCULAR: Denies chest pain. Denies palpitations or racing or irregular heart beat. Denies ankle edema. RESPIRATORY: Denies cough, cold, or chest congestion. Denies shortness of breath, difficulty breathing, or wheezing. GASTROINTESTINAL: Admits to left lower quadrant abdominal pain GENITOURINARY: Denies difficulty urinating, painful urination, burning, frequency, blood in urine, or discharge. FEMALE GENITOURINARY: Denies vaginal bleeding, heavy or abnormal periods, irregular periods. Denies vaginal discharge or odor. MUSCULOSKELETAL: Denies back or neck pain or stiffness. Denies joint pain or swelling. SKIN: Denies rash, lesions or sores. HEMATOLOGIC : Denies easy bruising or bleeding. LYMPHATIC: Denies swollen, enlarged glands. NEUROLOGICAL: Denies confusion or altered mental status. Denies passing out or loss of consciousness. Denies dizziness or lightheadedness. Denies headache. Denies weakness or paralysis or loss of use of either side. Denies problems with gait or speech. Denies sensory loss, numbness, or tingling. Denies seizures. PSYCHIATRIC: Denies anxiety or stress. Denies depression, suicidal ideation, or homicidal ideation. ALL OTHER SYSTEMS REVIEWED AND NEGATIVE. PHYSICAL EXAMINATION: GENERAL: Well-appearing, well-nourished and in no acute distress. HEAD: Atraumatic, normocephalic. EYES: Pupils equal round and reactive to light, extraocular movements intact, conjunctiva are normal. ENT: Nares patent, oropharynx clear without exudates. Moist mucous membranes. NECK: Normal range of motion, supple without lymphadenopathy LUNGS: Breath sounds clear to auscultation bilaterally and equal. No wheezes rales or rhonchi. HEART: Regular rate and rhythm without murmurs ABDOMEN: Soft, tender in left lower quadrant no rebound or guarding Female : deferred Musculoskeletal: Normal range of motion, no pitting or edema. No cyanosis. NEUROLOGICAL: Cranial nerves grossly intact. Normal speech, normal gait. Normal sensory, motor exams PSYCH: Normal mood, normal affect. SKIN: Warm, Dry, normal turgor, no rashes or lesions noted. Dictation was performed using [email or web address] voice recognition software Physical Exam - Vital signs Vitals: Temp Pulse Resp BP Pulse Ox 98.7 F 85 14 125/65 100 12/24/16 18:06 12/24/16 18:06 12/24/16 18:06 12/24/16 18:06 12/24/16 18:06 Course - Re-evaluation Re-evalutation: 12/24/16 21:02 Physical examination noted no significant abnormality, ultrasound is consistent with an 11 week . Patient otherwise looks well is in no distress. Patient is very happy with the ultrasound report and wishes to be discharged After performing a Medical Screening Examination, I estimate there is LOW risk for ACUTE APPENDICITIS, BOWEL OBSTRUCTION, ACUTE CHOLECYSTITIS, PERFORATED DIVERTICULITIS, INCARCERATED HERNIA, PANCREATITIS, PELVIC INFLAMMATORY DISEASE, PERFORATED ULCER, ECTOPIC , or TUBO-OVARIAN ABSCESS, thus I consider the discharge disposition reasonable. Also, there is no evidence or peritonitis , sepsis, or toxicity. I have reevaluated this patient multiple times and no significant life threatening changes are noted. The patient and I have discussed the diagnosis and risks, and we agree with discharging home with close follow-up with the understanding that symptoms and presentations can change. We also discussed returning to the Emergency Department immediately if new or worsening symptoms occur. We have discussed the symptoms which are most concerning (e.g., bloody stool, fever, changing or worsening pain, vomiting) that necessitate immediate return. - Vital Signs Vital signs: Temp Pulse Resp BP Pulse Ox 99.1 F 85 16 130/69 H 100 12/24/16 20:25 12/24/16 20:25 12/24/16 20:25 12/24/16 20:25 12/24/16 20:25 - Laboratory Result Diagrams: 12/24/16 18:43 12/24/16 18:43 Laboratory results interpreted by me: 12/24/16 12/24/16 18:43 18:43 RBC 3.11 L Hgb 9.6 L Hct 27.5 L RDW 15.8 H Beta HCG, Quant 96675.00 H - Diagnostic Test Radiology reviewed: Image reviewed, Reports reviewed - Report given to patient Discharge - Discharge Clinical Impression: Abdominal pain affecting Condition: Stable Disposition: HOME, SELF-CARE Instructions: Abdominal Pain ([facility]) Referrals: [facility] [Provider Group] - Follow up tomorrow
[2016-12-24 20:51] VITALS: BP 130/69
== END 2016-12-24 20:25 | disposition home or self-care (01) ==
LOC: ER 18:02
DX: R10.9 Unspecified abdominal pain (principal); Z33.1 Pregnant state, incidental
CPT/HCPCS: 36415; 76801; 80053; 81001; 84702; 85025; 99284

== ENCOUNTER 2019-02-19 17:24 | Emergency (ER) | payer OTHER ==
[2019-02-19 17:29] VITALS: BP 143/77
[2019-02-19] MEDS ORDERED: LIDOCAINE 5% (700 MG) TRANSDERMAL ADH..PATCH TP ONE (17:36)
[2019-02-19] MEDS ORDERED: KETOROLAC TROMETHAMINE INJ/PF 30 MG/1 ML SDV IM ONE (17:36)
--- NOTE | 2019-02-19 17:42 | ER Document Report ---
HPI - HPI Time Seen by Provider: 02/19/19 17:31 Notes: Patient is a 28-year-old female with a history of lupus and fibromyalgia with a history of chronic pain who presents complaining of acute on chronic low back pain worse on the left than the right that started flaring up after physical therapy today for her neck and upper back. Patient states that the pain does not radiate. Denies any trauma or other injury she is aware of. She is able to eat and drink without difficulty. She is urinating normally and having normal bowel movements. Denies any headache, fever, URI, sore throat, chest pain, palpitations, syncope, cough, shortness of breath, wheeze, dyspnea, abdominal pain, nausea/vomiting/diarrhea, urinary retention, dysuria, hematuria, loss of control of bowel or bladder, numbness/tingling, saddle anesthesia, muscle paralysis/weakness, or rash. - ROS Systems Reviewed and Negative: Yes All other systems reviewed and negative - REPRODUCTIVE Reproductive: DENIES: : Past Medical History - Social History Smoking Status: Current Every Day Smoker Family History: Reviewed & Not Pertinent - Past Medical History Cardiac Medical History: Denies: Hx Congestive Heart Failure, Hx DVT, Hx Heart Attack, Hx Hypercholesterolemia, Hx Hypertension, Hx Pulmonary Embolism Pulmonary Medical History: Denies: Hx Asthma, Hx COPD Neurological Medical History: Reports: Hx Seizures - Last episode one year ago. Negative workup. Not on antiepileptic.. Denies: Hx Cerebrovascular Accident Endocrine Medical History: Denies: Hx Diabetes Mellitus Type 1, Hx Diabetes Mellitus Type 2, Hx Hyperthyroidism, Hx Hypothyroidism Renal/ Medical History: Reports: Hx Ovarian Cysts. Denies: Hx Kidney Stones, Hx Peritoneal Dialysis GI Medical History: Denies: Hx Cirrhosis, Hx Gastroesophageal Reflux Disease, Hx Hepatitis Musculoskeletal Medical History: Reports Hx Fibromyalgia Psychiatric Medical History: Reports: Hx Bipolar Disorder, Hx Depression Denies: Hx Post Traumatic Stress Disorder, Hx Schizophrenia Infectious Medical History: Denies: Hx Hepatitis, Hx HIV Past Surgical History: Reports: Hx Section - x2, Hx Tonsillectomy Vertical Provider Document - CONSTITUTIONAL Agree With Documented VS: No - HR 96-99 and RR 16-18 during exam, pt emotional as well Notes: PHYSICAL EXAMINATION: GENERAL: Well-appearing, well-nourished and in no acute distress. LUNGS: Breath sounds clear to auscultation bilaterally and equal. No wheezes rales or rhonchi. HEART: Regular rate and rhythm without murmurs, rubs, gallops. ABDOMEN: Soft, nontender, nondistended abdomen. No guarding, no rebound. Normal bowel sounds present. No CVA tenderness bilaterally. No pulsatile mass Musculoskeletal: LE's b/l: FROM to passive/active. Strength 5+/5. No deficits noted. No bony tenderness of extremities. Back: FROM to passive/active. Strength 5+/5. No vertebral point tenderness, stepoffs, or deformities. No other bony tenderness, erythema, swelling, or ecchymosis. SLR negative b/l. + mild tenderness to the L-paraspinal mm b/l L>R. Mild spasming. + left SI jt tenderness. No foot drop Extremities: No cyanosis, clubbing, or edema b/l. Peripheral pulses 2+. Capillary refill less than 2 seconds. NEUROLOGICAL: Normal speech, normal gait. Normal sensory, motor exams. Reflexes 2+ b/l. PSYCH: Pt somewhat emotional SKIN: Warm, Dry, normal turgor, no rashes or lesions noted. - INFECTION CONTROL TRAVEL OUTSIDE OF THE [place] IN LAST 30 DAYS: No Course - Re-evaluation Re-evalutation: 02/19/19 17:41 Patient is an afebrile, well-hydrated, 28-year-old female who presents to the ED with low back pain and lt sacroiliitis. Vitals are acceptable. PE is otherwise unremarkable for any focal neurological deficits. Patient was given Toradol & Lidoderm patch. She has no significant tachycardia, tachypnea, or hypoxia. She is nontoxic-appearing and is tolerating p.o. without difficulties. There are no signs of infection. No other red flag symptoms noted. No other labs or imaging warranted at this time based on H&P. Low suspicion for any meningitis, fracture, expanding/ruptured AAA, cauda equina syndrome, epidural mass lesion/abscess, herniated disc causing severe spinal stenosis, or other systemic infection at this time. Patient is aware that this condition can change from initial presentation and that she needs monitor symptoms closely for any acute changes. I will send her home with a prescription for robaxin, lidoderm patch, and a short Rx of steroids. Conservative measures otherwise for symptoms. Recheck with your PCM in 3-5 days. Consider consult with orthopedic/physical therapy. Return to the ED with any worsening/concerning symptoms otherwise as reviewed discharge. Patient is in agreement. - Vital Signs Vital signs: Temp Pulse Resp BP Pulse Ox 99.8 F 128 H 24 H 143/77 H 99 02/19/19 17:28 02/19/19 17:28 02/19/19 17:28 02/19/19 17:28 02/19/19 17:28 Discharge - Discharge Clinical Impression: Sacroiliitis Low back pain Qualifiers: Chronicity: acute Back pain laterality: bilateral Sciatica presence: without sciatica Qualified Code(s): M54.5 - Low back pain Condition: Stable Disposition: HOME, SELF-CARE Instructions: Low Back Pain ([facility]), Muscle Relaxers ([facility]) Additional Instructions: Rest, Ice Tylenol/ibuprofen as needed Light stretches daily Strength exercises as able Moist heat and massage may help F/u with your PCP in 3-5 days for a recheck Consider consult(s) with Orthopedics/physical therapy for ongoing/worsening symp toms Return to the ED with any worsening symptoms and/or development of fever, headache, chest pain, palpitations, syncope, shortness of breath, trouble breathing, abdominal pain, n/v/d, blood in stool/urine, loss of control of bowel/bladder, urinary retention, muscle weakness/paralysis, saddle anesthesia, numbness/tingling, or other worsening symptoms that are concerning to you. Prescriptions: Prednisone [Deltasone 10 mg Tablet] 10 mg PO DAILY #18 tablet Lidocaine [Lidoderm 5% (700 mg) Transdermal Patch] 1 patch TP DAILY #10 adh..patch Methocarbamol [Robaxin 750 mg Tablet] 750 mg PO TID PRN #10 tablet PRN Reason: Forms: Elevated Blood Pressure, Smoking Cessation Education Referrals: [facility] [Provider Group] - Follow up as needed
== END 2019-02-19 17:55 | disposition home or self-care (01) ==
LOC: ER 17:24
DX: M46.1 Sacroiliitis, not elsewhere classified (principal); M54.5 Low back pain; F17.200 Nicotine dependence, unspecified, uncomplicated
CPT/HCPCS: J1885